=== PATIENT | male | born 1950 | race Caucasian/White ===

== ENCOUNTER 2018-01-03 09:18 | Emergency (ER) | payer BC ==
[2018-01-03] MEDS ORDERED: Sodium Chloride 0.9% 1,000 ML IV ONE (09:27)
[2018-01-03] MEDS ORDERED: Ondansetron 4 MG/2 ML SDV IVPUSH ONE ×2 (09:27→10:50)
[2018-01-03] MEDS: Sodium Chloride 0.9% 5 ML Syringe FLUSH PRN ×2 (09:40→10:57)
[2018-01-03 10:03] LABS: CHLORIDE,CL 106 mmol/L (98-115); SODIUM,NA 142 mmol/L (136-145)
--- NOTE | 2018-01-03 10:03 | EDM.PDOC ---
ED HPI GENERAL MEDICAL PROBLEM - General Chief Complaint: General Stated Complaint: DIZZY,N/V Time Seen by Provider: 01/03/18 09:50 Source of Information: Reports: Patient History Limitations: Reports: No Limitations - History of Present Illness INITIAL COMMENTS - FREE TEXT/NARRATIVE: Patient is a 67-year-old gentleman who presents to the emergency department this morning with a complaint of dizziness. Patient states that he woke at 530 this morning, tried to get up out of bed and the room was spinning. Patient was able to make it to the bathroom where he had an episode of vomiting. He said the vomiting wasn't food but had a chemical smell to it. Patient had 3 more episodes of vomiting prior to presentation to the emergency department this morning. 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 Found out that the prior day that there was spraying of the field with pesticides via aircraft. Patient did not have any symptoms yesterday to include shortness of breath, chest pain, nausea, vomiting, headache, dizziness, skin redness or tingling, abdominal pain, bleeding from nose or mouth, or eye irritation. No other symptoms today other than nausea and vomiting. Onset: Today Onset Date: 01/03/18 Onset Time: 05:30 Duration: Hour(s): Location: Reports: Head Quality: Reports: Other (Dizziness) Improves with: Reports: Rest Worsens with: Reports: Movement Context: Reports: Other (Upon rising from bed this morning) Associated Symptoms: Reports: Nausea/Vomiting. Denies: Chest Pain, Fever/Chills , Headaches, Shortness of Breath - Related Data Allergies Allergy/AdvReac Type Severity Reaction Status Date / Time No Known Drug Allergies Allergy Other Verified 01/03/18 09:53 Home Meds: Home Meds Hydrochlorothiazide 25 mg PO DAILY 05/28/15 [History] Losartan [Cozaar] 50 mg PO DAILY 01/03/18 [History] Meclizine [Antivert] 12.5 mg PO TID PRN #15 tab 01/03/18 [Rx] Ondansetron [Zofran ODT] 4 mg PO Q6H PRN #12 tab.dis 01/03/18 [Rx] Social & Family History - Living Situation & Occupation Living situation: Reports: Occupation: Employed ED ROS GENERAL - Review of Systems Review Of Systems: ROS reveals no pertinent complaints other than HPI. HEENT: Reports: No Symptoms Respiratory: Reports: No Symptoms Cardiovascular: Reports: No Symptoms Endocrine: Reports: No Symptoms GI/Abdominal: Reports: No Symptoms : Reports: No Symptoms Musculoskeletal: Reports: No Symptoms Skin: Reports: No Symptoms Neurological: Reports: Dizziness. Denies: Headache Psychiatric: Reports: No Symptoms Hematologic/Lymphatic: Reports: No Symptoms Immunologic: Reports: No Symptoms ED EXAM, GENERAL - Physical Exam Exam: See Below Exam Limited By: No Limitations General Appearance: Alert, WD/WN, No Apparent Distress Eye Exam: Bilateral Eye: Normal Inspection, Nystagmus (No nystagmus noted), Other (Hallpike an Cedrick exam negative) Course - Vital Signs Last Recorded V/S: Last Vital Signs Temp 97.0 F 01/03/18 09:48 Pulse 60 01/03/18 09:48 Resp 20 01/03/18 09:48 BP 148/88 H 01/03/18 09:48 Pulse Ox 94 L 01/03/18 09:48 - Orders/Labs/Meds Orders: Active Orders 24 hr Category Date Time Status Peripheral IV Care [RC] . DIRECTED Care 01/03/18 09:27 Active Head wo Cont [CT] Stat Exams 01/03/18 09:51 Ordered COMPREHENSIVE METABOLIC PN,CMP [CHEM] Stat Lab 01/03/18 09:35 Received Sodium Chloride 0.9% [Normal Saline] 1,000 ml Med 01/03/18 09:27 Active IV .BOLUS Sodium Chloride 0.9% [Syrex Flush] Med 01/03/18 09:27 Active 5 ml FLUSH Q8HR PRN Peripheral IV Insertion Adult [OM.PC] Routine Oth 01/03/18 09:27 Ordered Medication Orders Sodium Chloride (Normal Saline) 1,000 mls @ 999 mls/hr IV .BOLUS ONE Stop: 01/03/18 10:27 Last Admin: 01/03/18 09:39 Dose: 999 mls/hr Sodium Chloride (Syrex Flush) 5 ml FLUSH Q8HR PRN PRN Reason: Keep Vein Open Last Admin: 01/03/18 09:40 Dose: 5 ml Labs: Laboratory Tests 01/03/18 Range/Units 09:35 WBC 6.3 (5.0-10.0) 10^3/uL RBC 5.27 (4.50-6.00) 10^6/uL Hgb 16.3 (13.0-17.0) g/dL Hct 48.5 (40.0-52.0) % MCV 91.9 (82.0-92.0) fL MCH 30.9 (27.0-31.0) pg MCHC 33.6 (32.0-36.0) g/dL RDW 12.4 (11.5-14.5) % Plt Count 228 (150-300) 10^3/uL MPV 7.2 L (7.4-10.4) fL Neut % (Auto) 70.9 H (50.0-70.0) % Lymph % (Auto) 18.7 L (20.0-40.0) % [place] % (Auto) 7.8 (2.0-8.0) % Eos % (Auto) 1.7 (1.0-3.0) % Baso % (Auto) 0.9 (0.0-1.0) % Neut # (Auto) 4.4 (2.5-7.0) 10^3/uL Lymph # (Auto) 1.2 (1.0-4.0) 10^3/uL [place] # (Auto) 0.5 (0.1-0.8) 10^3/uL Eos # (Auto) 0.1 (0.1-0.3) 10^3/uL Baso # (Auto) 0.1 (0.0-0.1) 10^3/uL Meds: Medications Generic Name Dose Route Start Last Admin Trade Name Freq PRN Reason Stop Dose Admin Sodium Chloride 1,000 mls @ 999 mls/hr 01/03/18 09:27 01/03/18 09:39 Normal Saline IV 01/03/18 10:27 999 mls/hr .BOLUS ONE Administration Sodium Chloride 5 ml 01/03/18 09:27 01/03/18 09:40 Syrex Flush FLUSH 5 ml Q8HR PRN Administration Keep Vein Open Discontinued Medications Generic Name Dose Route Start Last Admin Trade Name Freq PRN Reason Stop Dose Admin Ondansetron HCl 4 mg 01/03/18 09:27 01/03/18 09:39 Zofran IVPUSH 01/03/18 09:28 4 mg ONETIME ONE Administration - Radiology Interpretation Free Text/Narrative:: CT scan without contrast of the head shows surgical changes, no evidence of acute intracranial hemorrhage, however there is a question of a suprasellar aneurysm. Recommendation for CT with contrast per radiology. CT with contrast shows no obvious aneurysm. CT Results Date: 01/03/18 - Re-Assessments/Exams Free Text/Narrative Re-Assessment/Exam: 01/03/18 12:02 Patient afebrile, nontoxic appearing, vital signs stable, dizziness mostly resolved. Patient denies chest pain, shortness of breath, blurry vision or headache. Patient will be discharged with prescription for meclizine and Zofran , and a follow-up to [facility] in next 1-2 days. Departure - Departure Time of Disposition: 12:03 Disposition: Home, Self-Care 01 Condition: Good Clinical Impression: Vertigo - Discharge Information Instructions: Dizziness, [id number], Benign Positional Vertigo Referrals: Bharat Barker [employer] [Primary Care Provider] - Forms: ED Department Discharge Additional Instructions: Patient will follow-up at [facility] in 1-2 days. Return to emergency department sooner if symptoms continue or worsen. - My Orders Last 24 Hours: My Active Orders 01/03/18 09:27 Peripheral IV Care [RC] . DIRECTED Sodium Chloride 0.9% [Normal Saline] 1,000 ml IV .BOLUS Sodium Chloride 0.9% [Syrex Flush] 5 ml FLUSH Q8HR PRN Peripheral IV Insertion Adult [OM.PC] Routine 01/03/18 09:35 COMPREHENSIVE METABOLIC PN,CMP [CHEM] Stat 01/03/18 09:51 Head wo Cont [CT] Stat - Assessment/Plan Last 24 Hours: My Active Orders 01/03/18 09:27 Peripheral IV Care [RC] . DIRECTED Sodium Chloride 0.9% [Normal Saline] 1,000 ml IV .BOLUS Sodium Chloride 0.9% [Syrex Flush] 5 ml FLUSH Q8HR PRN Peripheral IV Insertion Adult [OM.PC] Routine 01/03/18 09:35 COMPREHENSIVE METABOLIC PN,CMP [CHEM] Stat 01/03/18 09:51 Head wo Cont [CT] Stat Assessment:: Vertigo Plan: Follow-up at [facility]
[2018-01-03] MEDS ORDERED: Iopamidol 612 MG/ML 75 ML Bottle IV PRN (11:32)
[2018-01-03 11:37] VITALS: BP 140/87
[2018-01-03] MEDS ORDERED: Sodium Chloride 0.9% 50 ML IV SCH (11:45)
== END 2018-01-03 12:15 | disposition home or self-care (01) ==
LOC: KA.ED 09:18
DX: R42 Dizziness and giddiness (principal); Z79.899 Other long term (current) drug therapy
CPT/HCPCS: 70470; 80053; 85025; 96361; 96374; 96376; 99284; J2405; J7030; J7050; Q9967

== ENCOUNTER 2018-12-12 06:58 | Day surgery (SDC) | payer MEDICARE, BC ==
[~2018-12-12 06:58] MED LIST: EPINEPHrine 1:10,000 1 MG/10 ML Syringe ONE; Propofol 200 MG/20 ML SDV ONE
[2018-12-12] MEDS ORDERED: Propofol 200 MG/20 ML SDV IV ONE (06:59)
[2018-12-12] MEDS ORDERED: Sodium Chloride 0.9% 10 ML Syringe FLUSH PRN (07:00)
[2018-12-12] MEDS ORDERED: Lactated Ringers 1,000 ML IV SCH (07:00)
[2018-12-12] MEDS ORDERED: Propofol 200 MG/20 ML SDV ONE (07:47)
--- NOTE | 2018-12-12 09:42 | PCM.OPNOTE ---
- General Post-Op/Procedure Note Date of Surgery/Procedure: 12/12/18 Operative Procedure(s): Colonoscopy and polypectomy. Anesthesia Technique: MAC Primary Surgeon: Jerry Claudio Complications: None Condition: Good Free Text/Narrative:: INFORMED CONSENT: Patient is here today for elective colonoscopy. All aspects of this procedure have been discussed with the patient. All possible complications also, including possibility of perforation, infection, pain, bleeding and unknown complications. In the event of perforation patient may need to have abdominal exploration, colon resection, colostomy and even was discussed. Anesthetic complications were handled by anesthesia department. The patient understands fully well. Patient did not have any further questions for me at the end of my interview. The patient wishes for me to proceed. PREOPERATIVE DIAGNOSIS/INDICATIONS: [Screening colonoscopy] POSTOPERATIVE DIAGNOSIS: [Tortuous colon, polyp in the splenic flexure.] INSTRUMENT USED: [employer] videocolonoscope. ASA CLASSIFICATION: [2] ANESTHESIA: Continuous EKG, oximetry and intermittent blood pressure and respiratory monitoring were performed throughout the procedure. IV Versed and Fentanyl were administered. PROCEDURE PERFORMED: Colonoscopy. The colon was long and tortuous. POSITIONS OF PATIENT: Left lateral. RECTUM: Normal. SIGMOID COLON: Normal except for a few diverticuli. DESCENDING COLON: Normal. SPLENIC FLEXURE: A polyp was identified and removed using snare and electrocautery.. TRANSVERSE COLON: Normal. HEPATIC FLEXURE: Normal. ASCENDING COLON: Normal. CECUM: Normal. ILEOCECAL VALVE: Normal. BIOPSY: None. TOLERANCE: Excellent. COMPLICATIONS: None. Tolerance: Excellent.
[2018-12-12 11:26] VITALS: BP 146/73
== END 2018-12-12 10:25 | disposition home or self-care (01) ==
LOC: KA.SDS 06:58
PROVIDERS: ATTEND Family Medicine
DX: K51.40 Inflammatory polyps of colon without complications (principal); K57.30 Diverticulosis of large intestine without perforation or abscess without bleeding; K63.89 Other specified diseases of intestine; I10 Essential (primary) hypertension; E78.00 Pure hypercholesterolemia, unspecified; F32.9 Major depressive disorder, single episode, unspecified; E66.9 Obesity, unspecified; Z68.32 Body mass index [BMI] 32.0-32.9, adult; Z88.8 Allergy status to other drugs, medicaments and biological substances; Z79.899 Other long term (current) drug therapy
CPT/HCPCS: 00812; J2704; J7120